=== PATIENT | female | born 1985 ===

== ENCOUNTER 2016-08-23 20:09 | Emergency (ER) | payer BC ==
[2016-08-23 20:25] VITALS: BP 149/88
--- NOTE | 2016-08-23 21:01 | RAD ---
INDICATION: Left knee injury. TECHNIQUE: 4 views of the left knee were obtained. FINDINGS: The bones are in normal alignment. There is a small joint effusion present. No fracture is seen. Joint spaces appear maintained. IMPRESSION: SMALL JOINT EFFUSION, NO FRACTURE IS SEEN.
--- NOTE | 2016-08-28 09:28 | UC ---
Knee Pain HPI - HPI Summary HPI Summary: twisted left knee day prior hurts medially decreased ROM - History of Current Complaint Chief Complaint: UCLowerExtremity Stated Complaint: LEFT KNEE PAIN Time Seen by Provider: 08/23/16 20:20 Hx Last Menstrual Period: 05/31/12 patient on camrese Onset/Duration: Sudden Onset, Lasting Hours Severity Initially: Moderate Severity Currently: Moderate Pain Intensity: 8 Pain Scale Used: 0-10 Numeric Character: Sharp, Aching Aggravating Factor(s): Movement, Weight Bearing Alleviating Factor(s): Rest Able to Bear Weight: Yes - Allergies/Home Medications Allergies/Adverse Reactions: Allergies Allergy/AdvReac Type Severity Reaction Status Date / Time Amoxicillin Allergy Unknown Verified 08/23/16 20:25 Reaction Details Penicillins Allergy Not known Verified 08/23/16 20:25 PMH/Surg Hx/FS Hx/Imm Hx Previously Healthy: Yes - Surgical History Surgical History: None - Family History Known Family History: Positive: Hypertension - Social History Alcohol Use: None Substance Use Type: None Smoking Status (MU): Never Smoked Tobacco Review of Systems Constitutional: Negative Skin: Negative Eyes: Negative ENT: Negative Respiratory: Negative Cardiovascular: Negative Gastrointestinal: Negative Genitourinary: Negative Motor: Negative Neurovascular: Negative Musculoskeletal: Arthralgia Neurological: Negative Psychological: Negative All Other Systems Reviewed And Are Negative: Yes Physical Exam Triage Information Reviewed: Yes Appearance: Well-Appearing, No Pain Distress, Well-Nourished Vital Signs: Initial Vital Signs Temp 99.8 F 08/23/16 20:17 Pulse 86 08/23/16 20:17 Resp 16 08/23/16 20:17 BP 149/88 08/23/16 20:17 Pulse Ox 100 08/23/16 20:17 Vital Signs Reviewed: Yes Eyes: Positive: Conjunctiva Clear ENT: Positive: Hearing grossly normal. Negative: Nasal congestion, Nasal drainage, Trismus, Muffled/hoarse voice Neck: Positive: Supple, Nontender Respiratory: Positive: Lungs clear, Normal breath sounds, No respiratory distress, No accessory muscle use Cardiovascular: Positive: RRR, No Murmur Musculoskeletal: Positive: ROM Limited @ - left knee, Other: - tender medial joint line Neurological: Positive: Alert Psychological Exam: Normal Skin Exam: Normal Knee Pain Course/Dx - Differential Dx/Diagnosis Provider Diagnoses: left knee injury, suspect medial meniscus tear Discharge - Discharge Plan Condition: Stable Disposition: HOME Patient Education Materials: Meniscus Tear (ED) Referrals: Gregory Brennan MD [Medical Doctor] - As Soon As Possible SHAYNA Keys [Primary Care Provider] - 2 Weeks (for bp recheck) Additional Instructions: rest elevate ice advil hinge knee splint I suspect to torn medial meniscus
== END 2016-08-23 21:10 | disposition home or self-care (01) ==
LOC: UCCORT 20:09
DX: S89.92XA Unspecified injury of left lower leg, initial encounter (principal); X50.1XXA Overexertion from prolonged static or awkward postures, initial encounter; Y93.9 Activity, unspecified; Y92.9 Unspecified place or not applicable; Z88.0 Allergy status to penicillin
CPT/HCPCS: 99212; G0463